=== PATIENT | male | born 1980 | race Caucasian/White ===

== ENCOUNTER 2019-02-08 11:26 | Emergency (ER) | payer OTHER ==
[~2019-02-08] VITALS: Ht 182.9 cm; Wt 105.9 kg
[2019-02-08 11:48] VITALS: TEMP 97.8
[2019-02-08 14:45] VITALS: BP 132/89; PULSE 76
== END 2019-02-08 14:46 | disposition home or self-care (01) ==
LOC: COL.ER 11:26
DX: S43.121A Dislocation of right acromioclavicular joint, 100%-200% displacement, initial encounter (principal); X50.1XXA Overexertion from prolonged static or awkward postures, initial encounter